=== PATIENT | female | born 1965 | race Caucasian/White ===

== ENCOUNTER 2016-09-09 12:47 | Emergency (ER) | payer OTHER ==
[~2016-09-09] VITALS: Ht 149.9 cm; Wt 59.8 kg
[~2016-09-09 12:47] MED LIST: BETHANECHOL CHL25 MG PO; CENTURY CARDIO1 EAC1 PO; CEPHALEXIN500 M2 NG; CIPRO500 MG PO; CLONAZEPAM0.5 MG PO; CYMBALTA20 MG PO; DAILY VITAMIN1 EAC8 PO; EXALGO8 MG; KEFLEX500 MG PO; LEVAQUIN250 MG PO; LEVAQUIN750 MG PO; LEVO-T50 MCG PO; LEVOTHYROXINE50 MCG; LYRICA100 MG PO; LYRICA75 MG PO; MOBIC15 MG PO; NABUMETONE750 MG PO; NAPROSYN500 MG PO; OPANA10 MG PO; OXYCODONE HCL15 MG PO; OXYCONTIN30 MG; PERCOCET 5/31 TABLET PO; PREMARIN0.45 MG PO; PROTONIX40 MG PO; RELAFEN750 MG; SOMA250 MG PO; SOMA350 MG PO; STOOL SOFTENER100 MG PO; URECHOLINE25 MG PO; VENLAFAXINE225 MG PO; ZOFRAN ODT8 MG PO; ZOFRAN4 MG PO
[2016-09-09 15:55] VITALS: BP 132/84
== END 2016-09-09 15:56 | disposition home or self-care (01) ==
LOC: EME 12:47
DX: M54.41 Lumbago with sciatica, right side (principal); M79.604 Pain in right leg; Z98.1 Arthrodesis status
CPT/HCPCS: 93971; 99281; 99284; J1885

== ENCOUNTER 2016-12-09 09:10 | Emergency (ER) | payer OTHER ==
[~2016-12-09] VITALS: Ht 149.9 cm; Wt 52.1 kg
[2016-12-09 12:39] VITALS: BP 141/106
== END 2016-12-09 12:41 | disposition home or self-care (01) ==
LOC: EME 09:10
PROC: 3E0234Z Introduction of Serum, Toxoid and Vaccine into Muscle, Percutaneous Approach (ICD-10-PCS; principal; 2016-12-09)
DX: S40.012A Contusion of left shoulder, initial encounter (principal); S00.33XA Contusion of nose, initial encounter; S50.312A Abrasion of left elbow, initial encounter; Z23 Encounter for immunization; V49.40XA Driver injured in collision with unspecified motor vehicles in traffic accident, initial encounter; W22.10XA Striking against or struck by unspecified automobile airbag, initial encounter; Z98.1 Arthrodesis status; Z87.442 Personal history of urinary calculi; Z90.710 Acquired absence of both cervix and uterus; Z88.5 Allergy status to narcotic agent
CPT/HCPCS: 71020; 72050; 73030; 93005; 99281; 99284

== ENCOUNTER 2016-12-10 17:40 | Emergency (ER) | payer OTHER ==
[~2016-12-10] VITALS: Ht 149.9 cm; Wt 54.5 kg
[2016-12-10 20:43] VITALS: BP 145/97
== END 2016-12-10 20:43 | disposition home or self-care (01) ==
LOC: EME 17:40
DX: S06.0X0A Concussion without loss of consciousness, initial encounter (principal); S00.31XA Abrasion of nose, initial encounter; V43.52XA Car driver injured in collision with other type car in traffic accident, initial encounter; W22.11XA Striking against or struck by driver side automobile airbag, initial encounter; Y92.410 Unspecified street and highway as the place of occurrence of the external cause; M25.512 Pain in left shoulder; F41.9 Anxiety disorder, unspecified; F32.9 Major depressive disorder, single episode, unspecified; Z87.442 Personal history of urinary calculi; Z90.710 Acquired absence of both cervix and uterus; Z98.1 Arthrodesis status
CPT/HCPCS: 70450; 72125; 99281; 99283

== ENCOUNTER 2017-06-07 09:30 | Emergency (ER) | payer OTHER ==
[~2017-06-07] VITALS: Ht 149.9 cm; Wt 54.5 kg
[2017-06-07] MEDS ORDERED: PREDNISONE10 MG PO (10:06)
[2017-06-07 10:26] VITALS: BP 123/85
== END 2017-06-07 10:26 | disposition home or self-care (01) ==
LOC: EME 09:30
DX: M54.42 Lumbago with sciatica, left side (principal); Z88.5 Allergy status to narcotic agent